=== PATIENT | female | born 1975 | race African-American/Black ===

== ENCOUNTER 2021-01-23 12:38 | Emergency (ER) | payer SELFPAY ==
[~2021-01-23] VITALS: Ht 172.7 cm; Wt 85.0 kg
[2021-01-23] MEDS ORDERED: SODIUM CHLORIDE 0.9% 1,000 ML IV ONE (13:45)
[2021-01-23] MEDS ORDERED: MORPHINE SULFATE 2 MG/ML CPJ (NOT FOR IM USE) IV ONE (13:45)
[2021-01-23 14:06] LABS: BASOPHILS % 0.3 % (0.0-2.0); HEMATOCRIT. 47.4 % (36.0-48.0); HEMOGLOBIN. 15.8 g/dL (12.0-16.0); LYMPHOCYTES % 28.6 % (20.0-50.0); MEAN CORPUSCULAR HEMOGLOBIN 28.8 pg (28.0-32.0); MEAN CORPUSCULAR VOLUME 86.7 fL (81.0-99.0); MEAN PLATELET VOLUME 8.2 fl (7.4-10.4); MONOCYTES % 7.5 % (2.0-8.0); NEUTROPHILS % 62.6 % (40.0-76.0); PLATELET 224 x1000/uL (130-400); RED BLOOD CELL COUNT 5.47 mill/uL (4.2-5.4); RED CELL DISTRIBUTION WIDTH 13.2 % (11.6-14.6)
[2021-01-23 14:10] LABS: CHLORIDE 100 mEq/L (98-107)
[2021-01-23 14:16] LABS: HCG SCREEN NEGATIVE
[2021-01-23 14:48] LABS: CLARITY URINE CLEAR (CLEAR); COLOR URINE YELLOW (YELLOW); KETONES URINE NEGATIVE (NEGATIVE); LEUKOCYTE ESTERASE URINE NEGATIVE (NEGATIVE); NITRITE URINE NEGATIVE (NEGATIVE); OCCULT BLOOD URINE NEGATIVE (NEGATIVE); PH URINE 5.5 (4.5-8.0); PROTEIN URINE 1+ (NEGATIVE); SPECIFIC GRAVITY URINE 1.035 (1.005-1.030); UROBILINOGEN URINE 0.2 E.U./dL (0.2-1.0)
[2021-01-23] MEDS ORDERED: METOCLOPRAMIDE HCL 10MG/2ML VIAL IV ONE (15:00)
[2021-01-23 17:35] VITALS: BP 155/90
== END 2021-01-23 17:40 | disposition left against medical advice (07) ==
LOC: ER 12:38 → EDBEDREQ 15:27 → EDBEDREQTM 15:27 → EDBEDREQ 16:39 → EDBEDREQTM 16:39 → ER 17:40 → CANBEDREQ 20:10
DX: K85.90 Acute pancreatitis without necrosis or infection, unspecified (principal); R11.10 Vomiting, unspecified; R19.7 Diarrhea, unspecified; Z88.0 Allergy status to penicillin; Z91.040 Latex allergy status
CPT/HCPCS: 36415; 71045; 74176; 80053; 81003; 83690; 84703; 85025; 93005; 96361; 96374; 96375; 99285; J2270; J2765; J7030

== ENCOUNTER 2021-02-14 13:34 | Emergency (ER) | payer SELFPAY ==
[~2021-02-14] VITALS: Ht 172.7 cm; Wt 80.0 kg
[2021-02-14] MEDS ORDERED: OXYCODONE HCL/ACETAMINOPHEN 5/325MG TABLET PO ONE (14:45)
[2021-02-14 15:04] LABS: CLARITY URINE CLOUDY (CLEAR); COLOR URINE YELLOW (YELLOW); KETONES URINE NEGATIVE (NEGATIVE); LEUKOCYTE ESTERASE URINE NEGATIVE (NEGATIVE); NITRITE URINE NEGATIVE (NEGATIVE); OCCULT BLOOD URINE NEGATIVE (NEGATIVE); PROTEIN URINE 1+ (NEGATIVE); SPECIFIC GRAVITY URINE 1.037 (1.005-1.030); UROBILINOGEN URINE 0.2 E.U./dL (0.2-1.0)
[2021-02-14 15:40] LABS: BASOPHILS % 0.5 % (0.0-2.0); CHLORIDE 97 mEq/L (98-107); EOSINOPHILS % 1.2 % (0.0-5.0); HEMATOCRIT. 47.6 % (36.0-48.0); HEMOGLOBIN. 16.1 g/dL (12.0-16.0); LYMPHOCYTES % 30.4 % (20.0-50.0); MEAN CORPUSCULAR HEMOGLOBIN 29.4 pg (28.0-32.0); MEAN CORPUSCULAR VOLUME 86.9 fL (81.0-99.0); MEAN PLATELET VOLUME 8.1 fl (7.4-10.4); MONOCYTES % 8.7 % (2.0-8.0); NEUTROPHILS % 59.2 % (40.0-76.0); PLATELET 220 x1000/uL (130-400); RED BLOOD CELL COUNT 5.48 mill/uL (4.2-5.4); RED CELL DISTRIBUTION WIDTH 13.3 % (11.6-14.6)
[2021-02-14 15:44] LABS: INR 1.1; PROTHROMBIN TIME 11.3 sec (9.6-11.0)
[2021-02-14] MEDS ORDERED: MORPHINE SULFATE 4 MG/ML CPJ (NOT FOR IM USE) IV ONE (16:30)
[2021-02-14] MEDS ORDERED: METOCLOPRAMIDE HCL 10MG/2ML VIAL IV ONE (16:30)
[2021-02-14] MEDS ORDERED: INSULIN REGULAR (HUMULIN R) 300UNITS/3ML VIAL IV ONE (16:30)
[2021-02-14] MEDS ORDERED: OXYC1TAB12 MT (18:39)
[2021-02-14] MEDS ORDERED: METO-293 MT (20:07)
[2021-02-14] MEDS ORDERED: INSU100I28 SQ ×2 (20:10→20:17)
[2021-02-14] MEDS ORDERED: T3 PO ×2 (20:12→20:14)
[2021-02-14 20:47] VITALS: BP 129/69
[2021-02-15] MEDS ORDERED: T3 PO (19:49)
[2021-02-15] MEDS ORDERED: LANTUSUD SUBCUT (19:49)
== END 2021-02-14 20:48 | disposition home or self-care (01) ==
LOC: ER 14:29
DX: R10.9 Unspecified abdominal pain (principal); E11.9 Type 2 diabetes mellitus without complications; Z79.4 Long term (current) use of insulin; Z88.0 Allergy status to penicillin; Z88.1 Allergy status to other antibiotic agents; Z88.6 Allergy status to analgesic agent; Z88.8 Allergy status to other drugs, medicaments and biological substances; Z87.19 Personal history of other diseases of the digestive system; Z91.040 Latex allergy status; Z98.890 Other specified postprocedural states
CPT/HCPCS: 36415; 80053; 81003; 83690; 84484; 85025; 85610; 96374; 96375; 99285; J1815; J2270; J2765; Z7610

== ENCOUNTER 2021-02-15 18:48 | Emergency (ER) | payer SELFPAY ==
[~2021-02-15] VITALS: Ht 175.3 cm; Wt 70.0 kg
[~2021-02-15 18:48] MED LIST: INSU100I28 SQ; METO-293 MT; OXYC1TAB12 MT; T3 PO
[2021-02-15] MEDS ORDERED: T3 PO (19:49)
[2021-02-15] MEDS ORDERED: LANTUSUD SUBCUT (19:49)
[2021-02-15 19:55] VITALS: BP 120/82
== END 2021-02-15 20:03 | disposition home or self-care (01) ==
LOC: ER 18:48
DX: R10.9 Unspecified abdominal pain (principal); E11.9 Type 2 diabetes mellitus without complications; Z87.19 Personal history of other diseases of the digestive system; Z79.899 Other long term (current) drug therapy; Z88.0 Allergy status to penicillin; Z91.040 Latex allergy status
CPT/HCPCS: 99282